=== PATIENT | female | born 1970 | race Caucasian/White ===

== ENCOUNTER 2022-08-13 11:21 | Outpatient (CLI) | payer BC, SELFPAY ==
[2022-08-13 22:00] LABS: Chloride* 102 mmol/L (96-114); Sodium* 141 mmol/L (135-149)
[2022-08-13 22:01] LABS: Albumin* 4.4 g/dL (3.3-5.0); Potassium* 4.4 mmol/L (3.6-5.1)
[2022-08-13 22:04] LABS: Alanine Aminotransferase* 19 U/L (4-35); Alkaline Phosphatase* 103 U/L (40-150); Aspartate Amino Transferase* 23 U/L (12-35); Bilirubin Total* 0.4 mg/dL (0.1-1.5); Blood Urea Nitrogen* 13 mg/dL (7-30); Calcium* 9.6 mg/dL (8.4-10.6); Carbon Dioxide* 28 mmol/L (20-32); Creatinine* 0.7 mg/dL (0.5-1.5); Estimated Glomerular Filt Rate 103 ml/min; Glucose* 98 mg/dL (60-115); Total Protein* 7.4 g/dL (6.0-8.3)
[2022-08-13 22:07] LABS: C Reactive Protein* 3.7 mg/dL (0.5-1.0)
[2022-08-16 03:30] LABS: Anti-Nuclear Ab(ANA)IgG ELISA None Detected (None Detected)
== END 2022-08-13 11:22 | disposition home or self-care (01) ==
PROVIDERS: PCP Family Medicine; Visit Provider Family Medicine
DX: M13.0 Polyarthritis, unspecified (principal)
CPT/HCPCS: 80053; 84443; 86039; 86140; 86200; 86618

== ENCOUNTER 2025-01-25 11:28 | Outpatient (CLI) | payer BC, SELFPAY | END 2025-01-25 11:29 | disposition home or self-care (01) | PROVIDERS: PCP Family Medicine; Visit Provider Family Medicine | DX: R79.82 Elevated C-reactive protein (CRP) (principal); I10 Essential (primary) hypertension; Z13.6 Encounter for screening for cardiovascular disorders | CPT/HCPCS: 80053; 80061; 82043; 82570; 86140 ==